=== PATIENT | male | born 1965 | race Caucasian/White ===

== ENCOUNTER 2016-07-26 19:55 | Emergency (ER) | payer OTHER | END 2016-07-26 21:17 | disposition home or self-care (01) | LOC: FER 19:55 | DX: S61.011A Laceration without foreign body of right thumb without damage to nail, initial encounter (principal); F17.210 Nicotine dependence, cigarettes, uncomplicated; Z23 Encounter for immunization | CPT/HCPCS: 90471; 90715 ==